=== PATIENT | male | born 1985 | race Caucasian/White ===

== ENCOUNTER 2023-05-25 19:06 | Emergency (ER) | payer SELFPAY ==
[2023-05-25 19:15] VITALS: BP 107/72; PULSE 99; RESP 19; TEMP 98.2; BMI 25.0
[2023-05-25] MEDS ORDERED: LIDOCAINE HCL 2% JELLY 6 ML TP ONE (19:53)
[2023-05-25] MEDS: LIDOCAINE HCL 2% JELLY 10 ML CARTRIDGE TP ONE (20:00)
== END 2023-05-25 20:16 | disposition home or self-care (01) ==
LOC: JER 19:06
DX: K62.89 Other specified diseases of anus and rectum (principal); K64.9 Unspecified hemorrhoids
CPT/HCPCS: 99283-25